=== PATIENT | male | born 2000 | race Caucasian/White ===

== ENCOUNTER 2020-12-01 18:27 | Inpatient (IN) | payer BC ==
[~2020-12-01] VITALS: Ht 177.8 cm; Wt 87.1 kg
[2020-12-01 18:30] VITALS: BP 138/99
[2020-12-01] MEDS ORDERED: CELEXA 10 MG TA10 M1 PO (18:33)
[2020-12-01] MEDS ORDERED: OMEPRAZOLE 20 M20 M1 PO (18:34)
[2020-12-01] MEDS ORDERED: COLESTIPOL HCL1 G1 PO (18:34)
[2020-12-01 19:20] LABS: HEMATOCRIT 49.6 % (42.0-52.0); HEMOGLOBIN 17.4 gm/dL (14.0-18.0); MCH 30.5 pg (26.0-34.0); MCHC 35.2 g/dL (28.0-37.0); MCV 86.6 fL (80.0-100.0); MPV 9.3 fl. (7.2-11.1); NUCLEATED RBCS 0 /100WBC; PLATELET COUNT* 268 thou/uL (150-400); RBC 5.73 mil/uL (4.50-6.00); RDW-CV 13.6 % (10.5-14.5); WBC 18.1 thou/uL (4.0-11.0)
[2020-12-01 19:26] LABS: URINE BLOOD 3+ (Negative); URINE COLOR YELLOW; URINE GLUCOSE-RANDOM NEGATIVE (Negative); URINE KETONES 1+ (Negative); URINE LEUKOCYTES-REFLEX NEGATIVE (Negative); URINE NITRITE-REFLEX NEGATIVE (Negative); URINE PROTEIN 2+ (Negative); URINE SPECIFIC GRAVITY >= 1.030 (1.005-1.030); URINE UROBILINOGEN 0.2 E.U./dl (0.2-1.0)
[2020-12-01 19:28] LABS: ICTOTEST (BILI CONFIRMATORY) Negative (Negative); URINE BILIRUBIN 1+ (Negative); URINE CLARITY HAZY
[2020-12-01 19:28] LABS: CALCIUM 10.3 mg/dL (8.5-10.1); CREATININE 2.8 mg/dL (0.6-1.3); POTASSIUM 3.9 mmol/L (3.5-5.1)
[2020-12-01 19:32] LABS: TOTAL BILIRUBIN 1.4 mg/dL (<0.1-1.0); TOTAL PROTEIN 9.5 g/dL (6.4-8.2)
[2020-12-01 19:33] LABS: BACTERIA-REFLEX 1-9 Few /HPF (None Seen); CRYSTALS None Seen /LPF (None Seen); FINE GRANULAR CASTS 0-3 Few /LPF (None Seen); HYALINE CASTS 0-3 Few /LPF (None Seen); MUCUS 4-6 Moderate strn/LPF (None Seen); SQUAMOUS 4-10 Moderate /LPF (0-3); URINE RBC >20 Many /HPF (0-2); URINE WBC-REFLEX None Seen /HPF (0-5)
[2020-12-01 19:46] LABS: ABSOLUTE LYMPHOCYTES 1.6 thou/uL (0.8-5.3); ABSOLUTE MONOCYTES 1.6 thou/uL (0.0-1.2); ABSOLUTE NEUTROPHILS 14.8 thou/uL (1.6-8.1); PLATELET ESTIMATE ADEQUATE
[2020-12-01 20:36] LABS: AMP/METHAMP Negative (Negative); BARBITURATES Negative (Negative); BENZODIAZEPINES Negative (Negative); COCAINE Negative (Negative); METHADONE Negative (Negative); OPIATES Negative (Negative); PCP Negative (Negative); THC POSITIVE (Negative)
[2020-12-01 22:00] VITALS: BP 118/67
[2020-12-01 22:30] VITALS: BP 116/55
[2020-12-02] VITALS: BP 122/60
[2020-12-02 04:00] VITALS: BP 110/57
[2020-12-02 07:52] VITALS: BP 121/46
[2020-12-02 09:54] LABS: ABSOLUTE MONOCYTES 0.7 thou/uL (0.0-1.2); ABSOLUTE NEUTROPHILS 8.8 thou/uL (1.6-8.1); BASOPHILS 0.1 %; HEMATOCRIT 39.8 % (42.0-52.0); LYMPHOCYTES 9.5 %; MCH 30.8 pg (26.0-34.0); MCHC 34.5 g/dL (28.0-37.0); MCV 89.4 fL (80.0-100.0); MPV 9.4 fl. (7.2-11.1); NUCLEATED RBCS 0 /100WBC; POLYS 83.4 %; RBC 4.45 mil/uL (4.50-6.00); RDW-CV 13.7 % (10.5-14.5); WBC 10.6 thou/uL (4.0-11.0)
[2020-12-02 09:55] LABS: HEMOGLOBIN 13.7 gm/dL (14.0-18.0); PLATELET COUNT* 188 thou/uL (150-400)
--- NOTE | 2020-12-02 09:59 | EKG ---
[place] [address] ELECTROCARDIOGRAM REPORT Name: YENNY FROST Room: [address] ADM IN [facility].#: [id number] Admission: 12/01/20 Attend Phys: Kirk Abad, Discharge: Date of : [birth year] Date of Service: 12/01/20 1833 Report #: [id number] THIS REPORT FOR: //name// [facility] ED Test Date: 2020-12-01 Test Time: 18:33:24 Pat Name: YENNY FROST Department: Room: [facility] Gender: M Acidity Tester: SHANNA : 2000 Requested By: Doug Polanco Order Number: [id number] MD: Nelson Fermin Measurements Intervals [place] Rate: 98 P: 44 [place]: 122 QRS: -9 QRSD: 89 T: 34 QT: 327 QTc: 418 Interpretive Statements Sinus rhythm ST elev, probable normal early repol pattern No previous ECG available for comparison Electronically Signed On 12-02-2020 9:58:54 CDT by Nelson Fermin [email or web address] <ELECTRONICALLY SIGNED> By: Nelson Fermin MD, [facility] 12/02/20 0958 1833 1833 Nelson Fermin MD, [facility] /EPI
[2020-12-02 10:11] LABS: CALCIUM 8.4 mg/dL (8.5-10.1); CREATININE 1.1 mg/dL (0.6-1.3); POTASSIUM 4.3 mmol/L (3.5-5.1)
[2020-12-02 12:00] VITALS: BP 111/53
[2020-12-02 16:00] VITALS: BP 130/73
[2020-12-02 20:00] VITALS: BP 119/65
[2020-12-03] VITALS (7 sets, daily range): BP systolic 107–122; BP diastolic 59–71
[2020-12-03 01:41] LABS: HEMATOCRIT 38.9 % (42.0-52.0); HEMOGLOBIN 13.4 gm/dL (14.0-18.0); MCH 30.8 pg (26.0-34.0); MCHC 34.4 g/dL (28.0-37.0); MCV 89.4 fL (80.0-100.0); MPV 9.2 fl. (7.2-11.1); RBC 4.35 mil/uL (4.50-6.00); RDW-CV 13.8 % (10.5-14.5); WBC 12.9 thou/uL (4.0-11.0)
[2020-12-04 04:06] LABS: HEMATOCRIT 38.5 % (42.0-52.0); HEMOGLOBIN 13.3 gm/dL (14.0-18.0); MCH 30.8 pg (26.0-34.0); MCHC 34.6 g/dL (28.0-37.0); MCV 89.2 fL (80.0-100.0); MPV 9.5 fl. (7.2-11.1); RBC 4.32 mil/uL (4.50-6.00); RDW-CV 13.3 % (10.5-14.5); WBC 6.1 thou/uL (4.0-11.0)
[2020-12-04 04:29] LABS: CALCIUM 8.5 mg/dL (8.5-10.1); POTASSIUM 4.2 mmol/L (3.5-5.1)
[2020-12-04 05:03] VITALS: BP 112/67
[2020-12-04 08:00] VITALS: BP 117/64; BP 177/82
[2020-12-04 11:50] VITALS: BP 139/64
[2020-12-04 16:27] VITALS: BP 139/60
[2020-12-04 20:00] VITALS: BP 117/55
[2020-12-04 23:40] VITALS: BP 132/62
[2020-12-05 03:49] VITALS: BP 132/76
[2020-12-05 05:15] LABS: HEMATOCRIT 39.2 % (42.0-52.0); HEMOGLOBIN 13.6 gm/dL (14.0-18.0); MCH 30.7 pg (26.0-34.0); MCHC 34.6 g/dL (28.0-37.0); MCV 88.6 fL (80.0-100.0); MPV 9.5 fl. (7.2-11.1); RBC 4.42 mil/uL (4.50-6.00); RDW-CV 13.2 % (10.5-14.5); WBC 5.9 thou/uL (4.0-11.0)
[2020-12-05 05:36] LABS: CALCIUM 8.5 mg/dL (8.5-10.1); CREATININE 1.1 mg/dL (0.6-1.3); POTASSIUM 3.6 mmol/L (3.5-5.1)
[2020-12-05 08:00] VITALS: BP 123/70
[2020-12-05 12:00] VITALS: BP 123/67
[2020-12-05 13:44] VITALS: BP 123/67
--- NOTE | 2020-12-07 16:49 | CON ---
[address] [address] CONSULTATION Name: FROSTTYRONYENNY NECHE Room: [address] IN M.R.#: [id number] Admission: 12/01/20 Attend Phys: Kirk Abad MD Discharge: 12/05/20 Date of : [birth year] Report #: [id number] THIS REPORT FOR: cc: Physician not on staff Physician not on staff Saleem Lerma MD ~ DOC #: [id number] JOHN Luna DATE OF CONSULTATION: 12/04/2020 The patient does not have a PCP. Please note at the time of this dictation, the patient was seen and physically examined by myself. REASON FOR CONSULTATION: Pneumomediastinum and dry heaves. ALLERGIES: No known drug allergies. MEDICATIONS: From home include omeprazole 40 mg daily, colestipol 1 gram daily and citalopram 10 mg daily. PAST MEDICAL HISTORY: Negative. PAST SURGICAL HISTORY: He has had an EGD and a colonoscopy 2 years ago done at [facility]. We will need to obtain records from [place] and [place], [place], only one hospital there. HISTORY OF PRESENT ILLNESS: The patient has been having episodes with dry heaves, particularly in the morning. They may last, a couple at times, up to hours. He states that he will have some abdominal pain associated with it, however this has been ongoing for the last 7 years. He states after he had his cholecystectomy, he had some issues off and on, but nothing as significant as it has been over the last several years. He has been evaluated in [facility] and the last 2 places were [place], [place] and [place], [place] in which he had an EGD and a colonoscopy and he was told at that time everything was completely normal. The patient states it is pretty much regularly in the morning when he has this ongoing dry heaves, mostly if he does get anything up it is phlegm. He denies any bright red blood or any coffee-ground emesis. He states since his gallbladder, he does have bile acid diarrhea for which he takes colestipol, which does help with that. He denies any weight loss with this. He also states that he does get full very quickly when he does eat. Past medical history is negative. Surgical history EGD of colon. FAMILY HISTORY: Negative for [place] [address] CONSULTATION Name: YENNY FROST NECHE Room: [address] IN [facility]#: [id number] Admission: 12/01/20 Attend Phys: Kirk Abad MD Discharge: 12/05/20 Date of : [birth year] Report #: [id number] SOCIAL HISTORY: Denies alcohol use. No tobacco, but he does smoke marijuana. REVIEW OF SYSTEMS: Twelve point review of systems is essentially negative except what is mentioned in the HPI. PHYSICAL EXAMINATION: VITAL SIGNS: Temperature 36.7, pulse 45, respirations 15, blood pressure 112/67. HEART: Regular rate and rhythm. LUNGS: Clear. No subcutaneous emphysema appreciated. ABDOMEN: Soft, positive bowel sounds in all four quadrants with no masses or tenderness noted. LABORATORY AND DIAGNOSTIC DATA: Hemoglobin 13.3, white count 6.1, platelets 162. GFR 93, his CK is 676. CT of the abdomen and pelvis showed pneumomediastinum with gas around the esophagus. CT of the chest showed a pneumomediastinum dissecting up into the lower soft tissue of the neck. IMPRESSION: 1. Pneumomediastinum. 2. Dry heaves. 3. Gastroesophageal reflux disease. 4. Bile acid diarrhea. 5. Early satiety. 6. Tetrahydrocannabinol use. PLAN: 1. We will continue antibiotic therapy. 2. Keep n.p.o. 3. Obtain records from [place] and [place], [place] to evaluate what has already been done. 4. Further recommendations after CT of the chest performed this a.m. Thank you for allowing us to participate in this patient's care. Please do not hesitate to call with any questions with regard to this consult. Saleem Lerma MD JLB/[place] [address] CONSULTATION Name: FROSTYENNY CONNIE Room: [address] IN M.R.#: [id number] Admission: 12/01/20 Attend Phys: Kirk Abad MD Discharge: 12/05/20 Date of : [birth year] Report #: [id number] <ELECTRONICALLY SIGNED> By: Saleem Lerma MD 12/07/20 1649 0928 2048Saleem Lerma MD /nt
== END 2020-12-05 14:00 | disposition home or self-care (01) | DRG 922 ==
LOC: M.ERS 18:27 → M.TBA-ER 20:18 → M.2W 20:18
PROVIDERS: Emergency Medicine Emergency Medical Services; Internal Medicine; Physician Assistant; ADMIT Internal Medicine; ATTEND Internal Medicine
DX: T67.5XXA Heat exhaustion, unspecified, initial encounter (principal); N17.0 Acute kidney failure with tubular necrosis; M62.82 Rhabdomyolysis; E87.1 Hypo-osmolality and hyponatremia; J98.2 Interstitial emphysema; K21.9 Gastro-esophageal reflux disease without esophagitis; R68.81 Early satiety; F32.9 Major depressive disorder, single episode, unspecified; E86.0 Dehydration; I45.6 Pre-excitation syndrome; E78.5 Hyperlipidemia, unspecified; Z20.822 Contact with and (suspected) exposure to COVID-19; N20.0 Calculus of kidney; Z79.899 Other long term (current) drug therapy; Z83.3 Family history of diabetes mellitus; Z81.8 Family history of other mental and behavioral disorders; X30.XXXA Exposure to excessive natural heat, initial encounter; Y93.89 Activity, other specified; Y92.89 Other specified places as the place of occurrence of the external cause; Y99.8 Other external cause status